=== PATIENT | female | born 1960 | race Caucasian/White ===

== ENCOUNTER 2016-11-14 16:18 | Outpatient (CLI) | payer OTHER | END 2016-11-14 19:00 | disposition home or self-care (01) | LOC: SMA 16:18 | PROVIDERS: ATTEND Family Medicine | DX: Z12.31 Encounter for screening mammogram for malignant neoplasm of breast (principal) | CPT/HCPCS: 77067; G0202 ==

== ENCOUNTER 2018-11-12 15:16 | Outpatient (CLI) | payer OTHER | END 2018-11-12 20:56 | disposition home or self-care (01) | LOC: SMA 15:16 | PROVIDERS: ATTEND Family Medicine | DX: Z12.31 Encounter for screening mammogram for malignant neoplasm of breast (principal) | CPT/HCPCS: 77067 ==